=== PATIENT | male | born 1950 | race Caucasian/White ===

== ENCOUNTER → 2021-02-28 09:12 | Outpatient (BNVA) | payer MEDICARE, SELFPAY | PROVIDERS: PCP Internal Medicine; Visit Provider Urology | DX: C61 Malignant neoplasm of prostate (principal) | CPT/HCPCS: Q3014 ==

== ENCOUNTER → 2021-09-14 10:49 | Outpatient (BNVA) | payer MEDICARE, SELFPAY | PROVIDERS: PCP Nurse Practitioner Family; Visit Provider Urology | DX: C61 Malignant neoplasm of prostate (principal) | CPT/HCPCS: Q3014 ==

== ENCOUNTER → 2022-03-16 08:23 | Outpatient (BNVA) | payer MEDICARE, SELFPAY | PROVIDERS: PCP Nurse Practitioner Family; Visit Provider Urology | DX: C61 Malignant neoplasm of prostate (principal) | CPT/HCPCS: Q3014 ==

== ENCOUNTER → 2022-07-18 14:06 | Outpatient (BNVA) | payer MEDICARE, BC, SELFPAY | PROVIDERS: PCP Nurse Practitioner Family; Visit Provider Urology | DX: C61 Malignant neoplasm of prostate (principal) | CPT/HCPCS: 99212 ==

== ENCOUNTER 2023-01-15 15:17 | Outpatient (AMB) | payer MEDICARE, BC, SELFPAY ==
--- NOTE | 2023-01-15 15:21 | MHC.OFFVIS ---
Intake Intake Visit Reasons: 6M PSA(set) Intake Note: Patient is Present for Follow Up Urology Medication: None Antibiotic Allergies: None Blood Thinners: None Pharmacy: [facility] Allergies No Known Allergies Allergy (Verified 01/15/23 15:25) HPI HPI Comments History of Present Illness Details ?Brady MIRELES is a very pleasant male. He is a patient of Dr Mitchell. He is seen for the following urologic conditions. - prostate cancer PSA 02/12 1.9, 09/13 1.7, 03/15 2.6, 07/15 4.0, 01/14 1.9 Reviewed PSA chart Showing good stability Continue to follow q.6 months LILLIAN normal Prostate Cancer:? Low-grade, low volume disease initially 2012 with repeat cores ? 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 Prostate cancer was diagnosed?2010 in [place].? Diagnosis was reached by?needle biopsy, PSA at diagnosis 2.1 - 1 out of 12 cores Gl 3+3 5% ?2012 Gl 6, 1/12 core 5% ?2014 repeat biospy 1 core HGPIN.? The Saw grade is?3+3 = 6.? TNM Classification of Malignant Tumours (TNM)?T1c.? The D'Mt (NCCN) risk category is?Ultralow risk (PSA< 4, Gl < 7, T1c).? Initial therapy included?Primary treatment - differed therapy ? Recent labs included?10/09 , a PSA (prostate-specific antigen) 1.7, 12/11 1.8, 10/11 1.9, 02/12 1.9, 09/13 1.7, 03/15 2.6 Imaging - 02/12 MRI 36 g prostate. No areas of suspicion PFSH Medical History Prostate cancer Surgical History History of surgery Review of Systems Const Denies chills and Denies fever(s) Card Reports no additional complaints and Denies syncope Resp Denies cough GI Denies abdominal pain and Denies heartburn Reports as per HPI and Denies change in libido Neuro Denies syncope Psych Denies change in libido Endo Denies change in libido Physical Exam Const General: cooperative, healthy appearing, comfortable and no acute distress Orientation/consciousness: patient oriented x3 HEENT Face and sinus: Yes normal facial exam Mouth: moist mucous membranes Neck Neck: Yes normal visual inspection, Yes full ROM and Yes trachea midline Chest Chest palpation & inspection: normal inspection of the chest Resp Effort & Inspection: normal respiratory effort, able to speak in complete sentences and no respiratory distress GI Inspection: Yes normal to inspection Back/Spine/Pelvis Cervical Spine: normal cervical lordosis Thoracic/Lumbar Spine: thoracic and lumbar spine normal to inspection Skin General skin exam: no rashes or lesions noted Neuro General: patient oriented x3, gait normal, tone normal and moves all extremities Extrem General: Yes normal to inspection and Yes capillary refill normal Assessment & Plan Assessment & Plan (1) Prostate CA: Comment: Low-grade low volume since 2012 Code(s): C61 - Malignant neoplasm of prostate Plan Four month follow-up PSA Orders: Orders Prostate Specific Antigen 4 Months C61 - Malignant neoplasm of prostate Patient Instructions: Imaging studies, laboratory and physical exam results were discussed and reviewed in detail. No major barriers to patient understanding were identified. An opportunity to ask questions regarding the treatment plan was provided. All questions were answered. The patient expressed understanding and agreement with the above treatment plan. The patient is aware they should contact our office by phone for worsening of their current condition or the appearance of new urologic symptoms. Compliance is encouraged with any medications and followup testing that is ordered. It is a privilege to participate in the urologic care of your patient. If you have any questions or concerns regarding treatment for the above conditions, or other urologic issues, please do not hesitate to contact me. The office telephone contact is [phone]. This note is constructed using voice recognition software. While every effort has been made to ensure accuracy retail associate manager bilingual errors may have been included. Yours sincerely, Dr Jc Rios MD, [facility] - Urology Providers of Expert, Compassionate Care for the Genitourinary System Coding Level of Care Code Est Pt Level 3 (89210) Diagnoses Prostate CA C61
== END 2023-01-15 16:15 | disposition home or self-care (01) ==
PROVIDERS: Visit Provider Urology
DX: C61 Malignant neoplasm of prostate (principal)
CPT/HCPCS: 99213

== ENCOUNTER → 2023-01-15 15:17 | Outpatient (BNVA) | payer MEDICARE, BC, SELFPAY | PROVIDERS: Visit Provider Urology | DX: C61 Malignant neoplasm of prostate (principal) | CPT/HCPCS: 99212 ==

== ENCOUNTER 2023-08-09 09:27 | Outpatient (AMB) | payer MEDICARE, BC, SELFPAY ==
--- NOTE | 2023-08-09 09:27 | A.OFFVIS_ITS ---
Intake Visit Reasons: 6m/PSA(set) Intake Note: [phone] Mint Wafer Depositor Required: No Allergies No Known Allergies Allergy (Verified 08/09/23 09:28) Medication List - Last Reconciled 08/09/23 by Jc Rios MD tamsulosin 0.4 mg PO BEDTIME 30 days HPI Comments Details: ?Brady MIRELES is a very pleasant male. He is a patient of Dr Mitchell. He is seen for the following urologic conditions. - prostate cancer - prostatitis - Lower urinary tract symptoms Telemedicine Evaluation 15 min Consultation [employer] Greg Video PSA 02/12 1.9, 09/13 1.7, 03/15 2.6, 01/14 1.9, 07/16 2.2 Prostate Cancer:? Low-grade, low volume disease initially 2012 with repeat cores ? 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 Prostate cancer was diagnosed?2010 in [place].? Diagnosis was reached by?needle biopsy, PSA at diagnosis 2.1 - 1 out of 12 cores Gl 3+3 5% ?2012 Gl 6, 1/12 core 5% ?2014 repeat biospy 1 core HGPIN.? The Saw Grade is?3+3 = 6.? TNM Classification of Malignant Tumours (TNM)?T1c.? The D'Mt (NCCN) risk category is?Ultralow risk (PSA< 4, Gl < 7, T1c).? Initial therapy included?Primary treatment - differed therapy ? Recent labs included?10/09 , a PSA (prostate-specific antigen) 1.7, 12/11 1.8, 10/11 1.9, 02/12 1.9, 09/13 1.7, 03/15 2.6 Imaging - 02/12 MRI 36 g prostate. No areas of suspicion PFSH Medical History Prostate cancer Surgical History History of surgery Telehealth Telehealth [facility] Location of provider rendering services: practice address Location of patient: address on file Patient Identification confirmed using: Name, : Yes Telehealth method: video Patient verbally consented to treatment: Yes Patient verbally consented to billing insurance company: Yes Patient informed of any privacy concerns related to visit: Yes Minutes spent on Phone/Video with Pt.: 15 Assessment & Plan Assessment & Plan (1) Prostate CA: Comment: Low-grade low volume since 2012 Code(s): C61 - Malignant neoplasm of prostate Category: Medical (2) Bladder outlet obstruction: Code(s): N32.0 - Bladder-neck obstruction Category: Medical Plan start flomax Medications: New tamsulosin 0.4 mg PO BEDTIME 30 days 30 caps 1RF N32.0 - Bladder-neck obstruction, N40.1 - Benign prostatic hyperplasia with lower urinary tract symptoms, R35.1 - Nocturia Patient Instructions: Imaging studies, laboratory and physical exam results were discussed and reviewed in detail. No major barriers to patient understanding were identified. An opportunity to ask questions regarding the treatment plan was provided. All questions were answered. The patient expressed understanding and agreement with the above treatment plan. The patient is aware they should contact our office by phone for worsening of their current condition or the appearance of new urologic symptoms. Compliance is encouraged with any medications and followup testing that is ordered. It is a privilege to participate in the urologic care of your patient. If you have any questions or concerns regarding treatment for the above conditions, or other urologic issues, please do not hesitate to contact me. The office telephone contact is [phone]. This note is constructed using voice recognition software. While every effort has been made to ensure accuracy level vial grinder errors may have been included. Yours sincerely, Dr Jc Rios MD, [facility] - Urology Providers of Expert, Compassionate Care for the Genitourinary System Coding Level of Care Code Tele Est Pt Level 4 (86936) Diagnoses Prostate CA C61 Bladder outlet obstruction N32.0
== END 2023-08-09 10:51 | disposition home or self-care (01) ==
LOC: HO.HUSH 09:27
PROVIDERS: PCP Nurse Practitioner Family; Visit Provider Urology
DX: C61 Malignant neoplasm of prostate (principal); N32.0 Bladder-neck obstruction
CPT/HCPCS: 99213

== ENCOUNTER → 2023-08-09 09:27 | Outpatient (BNVA) | payer MEDICARE, BC, SELFPAY | PROVIDERS: PCP Nurse Practitioner Family; Visit Provider Urology ==

== ENCOUNTER 2025-01-22 09:49 | Outpatient (AMB) | payer MEDICARE, BC, SELFPAY ==
--- OUTSIDE RECORDS SUMMARY | 2025-01-21 23:59 | XMS_ITS | Continuity of Care Document ---
Author Organization [facility] Address [address] [place] [address]- Care Team Providers Care Director Of Special Education Name Role Phone Sean KOWALSKI, Aaron Primary Care Physician [phone] Encounter [facility] Date(s): 12/22/24 - 01/21/[address] [address]- Attending Physician: Keren Eid Admitting Physician: Keren Eid Referring Physician: AdmtrKeren Encounter Type: Triage Allergies, Adverse Reactions, Alerts No Known Allergies Immunizations Given and Recorded Vaccine Date Status Refusal Reason SARS-CoV-2(COVID-19)mRNA-LNP vac([id number]) 12/07/24 Recorded [id number] bivalent booster vax 11/29/21 Recorded SARS-CoV-2 (COVID-19) mRNA BNT-162b2 vac 02/15/21 Recorded SARS-CoV-2 (COVID-19) mRNA BNT-162b2 vac 05/2020 Recorded SARS-CoV-2 (COVID-19) mRNA-1273 vaccine 06/16/20 R ecorded SARS-CoV-2 (COVID-19) mRNA-1273 vaccine 05/19/20 R ecorded Medications aspirin 81 mg oral capsule 4 capsule = 324 mg, By Mouth, Every 4 hours, 0 Refills, Maintenance, 06/02/21 3:03:00 PM EST, Partial fill upon patient request if the prescription is for a schedule II opioid drug. Start Date: 06/02/21 Status: Ordered Medication Dispense Status: Completed Total Allowed Fills: 1 Fills Dispensed: 0 diazepam 5 mg oral tablet 5 mg, 1, tablet, By Mouth, Once, Take 1 hour prior to procedure, # 1 tablet, Refills 0, Tot. Refills 0, Soft Stop, 01/12/25 4:33:00 PM EDT, Route to Pharmacy Electronically, [facility]/pharmacy #[id number], Partial fill upon patient request if the prescription is for a schedule II opioid drug., 179, cm, 01/05/25 11:42:00 EDT, Height, 92.8, kg, 09/07/24 10:26:00 EDT, Dry Weight Start Date: 01/12/25 Status: Ordered Medication Dispense Status: Completed Quantity: 1.0 Unit: tablet Total Allowed Fills: 1 Fills Dispensed: 0 Fish Oil By Mouth, 0 Refills, Maintenance, 04/01/24 9:40:00 AM EST, Partial fill upon patient request if the prescription is for a schedule II opioid drug. Start Date: 04/01/24 Status: Ordered Medication Dispense Status: Completed Total Allowed Fills: 1 Fills Dispensed: 0 Multivitamin Daily, 0 Refills, Maintenance, 11/04/17 2:17:36 PM EDT Start Date: 11/04/17 Status: Ordered Medication Dispense Status: Completed Total Allowed Fills: 1 Fills Dispensed: 0 PEG-3350 with Electrolytes (Eqv-GoLYTELY) oral powder for reconstitution 240 mL, By Mouth, Every 10 minutes, Prior to colonoscopy, # 1 each, 0 Refills, Maintenance, :03:00 AM EDT, REC Powder, [facility], Partial fill upon patient request if the prescription is for a schedule II opioid drug., 240 mL By Mouth Every 10 minutes,Instr:Prior to colonoscopy, 180, cm, 12/14/24 8:32:00 EDT, Height, 92.8, kg, 09/07/24 10:26:00 EDT, Dry Weight Start Date: 12/14/24 Status: Ordered Medication Dispense Status: Completed Quantity: 1.0 Unit: each Total Allowed Fills: 1 Fills Dispensed: 0 rosuvastatin 5 mg oral tablet 1 tablet = 5 mg, By Mouth, Daily at bedtime, # 90 tablet, 1 Refills, Maintenance, 12/23/24 4:51:00 PM EDT, Tablet, [facility], Partial fill upon patient request if the prescription is for a schedule II opioid drug., 179, cm, 12/22/24 8:17:00 EDT, Height, 92.8, kg, 09/07/24 10:26:00 EDT, Dry Weight Start Date: 12/23/24 Status: Ordered Medication Dispense Status: Completed Quantity: 90.0 Unit: tablet Total Allowed Fills: 2 Fills Dispensed: 0 Problem List Condition Confirmation Course Effective Dates Status Health Status Informant Carcinoma of prostate Confirmed Active Constipation, chronic Confirmed Active Essential hypertension Confirmed Active Hypercholesterolemia Confirmed Active Medicare annual wellness visit, initial Confirmed Active Right elbow tendonitis Confirmed Active Social History Social History Type Response Smoking Status Never (less than 100 in lifetime) entered on: 02/03/21 Sexual Orientation Self described orien tation: ; Straight or heterosexual Sex Male Sex Representation Male (finding) Patient Care team information Care Team Personnel Name: Aaron Estrada NP Position: [facility] Associate Professional Member Role: PCP Address: [address] [place] [address] Telecom: Care Team Related Persons Name: GÓMEZ SEPULVEDA Insurance Providers Guarantor name: JACOB MIRELES [employer] Plan Information #: 1 Payer: MEDICARE B Payer Identifier: NA Member Number: [id number] Group Number: NA Subscriber Identifier: NA Relationship to Subscriber: self Coverage Type: NA Coverage Verification Date: NA Telecom: NA Address: NA Health Plan Information #: 2 Payer: [facility] Payer Identifier: NA Member Number: [id number] Group Number: NA Subscriber Identifier: NA Relationship to Subscriber: self Coverage Type: Medicare Other Coverage Verification Date: Telecom: Address:
--- NOTE | 2025-01-22 09:51 | MHC.OFFVIS ---
Intake Visit Reasons: right renal calculi Intake Note: Patient is present for Kidney Stone Urology Med: Patient is no longer on Tamsulosin Antibiotic Allergy: None Blood Thinner: Aspirin Accompanied by: Self / Same As Patient Allergies No Known Allergies Allergy (Verified 08/09/23 09:28) HPI Comments Details: ?Brayd MIRELES is a very pleasant male. He is a patient of Dr Mitchell. He is seen for the following urologic conditions. - prostate cancer - prostatitis - Lower urinary tract symptoms - nephrolithiasis Chest x-ray at [facility] had shown multiple right renal stones CT scan with 2.2 cm right renal stone Noted 1.2 cm tail of pancreas lesion recommend abdominal CT with contrast Discussed stone procedure Amenable to ureteroscopy with steerable vacuum access sheath To be organized Pancreatic lesion requires complete imaging PSA 02/12 1.9, 09/13 1.7, 03/15 2.6, 01/14 1.9, 07/16 2.2 Prostate Cancer:? Low-grade, low volume disease initially 2012 with repeat cores ? Used to work in [employer] for the [employer] ?PSA remains stable ?Currently assisting [employer] with public [employer] communication ? Prostate cancer was diagnosed?2010 in [place].? Diagnosis was reached by?needle biopsy, PSA at diagnosis 2.1 - 1 out of 12 cores Gl 3+3 5% ?2012 Gl 6, 1/12 core 5% ?2014 repeat biospy 1 core HGPIN.? The [place] Grade is?3+3 = 6.? TNM Classification of Malignant Tumours (TNM)?T1c.? The D'Mt (NCCN) risk category is?Ultralow risk (PSA< 4, Gl < 7, T1c).? Initial therapy included?Primary treatment - differed therapy ? Recent labs included?10/09 , a PSA (prostate-specific antigen) 1.7, 12/11 1.8, 10/11 1.9, 02/12 1.9, 09/13 1.7, 03/15 2.6 Imaging - 02/12 MRI 36 g prostate. No areas of suspicion PFSH Medical History Prostate cancer Surgical History History of surgery Review of Systems Const Denies chills and Denies fever(s) Card Reports no additional complaints and Denies syncope Resp Denies cough GI Denies abdominal pain and Denies heartburn Reports as per HPI and Denies change in libido Neuro Denies syncope Psych Denies change in libido Endo Denies change in libido Physical Exam Const General: cooperative, healthy appearing, comfortable and no acute distress Orientation/consciousness: patient oriented x3 HEENT Face and sinus: Yes normal facial exam Mouth: moist mucous membranes Neck Neck: Yes normal visual inspection, Yes full ROM and Yes trachea midline Chest Chest palpation & inspection: normal inspection of the chest Resp Effort & Inspection: normal respiratory effort, able to speak in complete sentences and no respiratory distress GI Inspection: Yes normal to inspection Back/Spine/Pelvis Cervical Spine: normal cervical lordosis Thoracic/Lumbar Spine: thoracic and lumbar spine normal to inspection Skin General skin exam: no rashes or lesions noted Neuro General: patient oriented x3, gait normal, tone normal and moves all extremities Extrem General: Yes normal to inspection and Yes capillary refill normal Assessment & Plan Assessment & Plan (1) Nephrolithiasis: Code(s): N20.0 - Calculus of kidney Category: Medical (2) Pancreatic lesion: Code(s): K86.9 - Disease of pancreas, unspecified Category: Medical (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 Options such as medical therapy were discussed. Interventions include chemical dissolution, ESWL, ureteroscopy with laser lithotripsy and stent placement, PCNL. The relative uncertainties and benefits related to each alternate procedure were adequately discussed. General surgical risks including, but not limited to - pain, bleeding, infection, myocardial infarction, pulmonary embolus, deep vein thrombosis and cerebrovascular accident which may result in further hospitalization were discussed. Full disclosure of the procedure as well as all major risks, benefits and complications were discussed including but not limited to damage to the urethra, bladder and kidney infection, damage to the ureter, stent migration or malposition, scarring to the renal pelvis, remnant stone fragments, subsequent stone passage with need for secondary procedures. The overall secondary procedure rate is approximately 10-15%. The overall clearance rate is approximately 90-95%. Success of the procedure in the short-term does not necessarily guarantee that long-term success will be maintained. Suitable follow up will need to be maintained. The patient showed understanding of discussion and wishes to proceed with - cystoscopy, retrograde, ureteroscopy, possible lithotripsy/stone basketing and stent on the right side Orders: Orders CT abdomen wo/w IV con Today D13.6 - Benign neoplasm of pancreas, K86.9 - Disease of pancreas, unspecified MR MRCP Today D13.6 - Benign neoplasm of pancreas, K86.9 - Disease of pancreas, unspecified Patient Instructions: This note is constructed using voice recognition software. While every effort has been made to ensure accuracy care management coordinator errors may have been included. Imaging studies, laboratory and physical exam results were discussed and reviewed in detail. No major barriers to patient understanding were identified. An opportunity to ask questions regarding the treatment plan was provided. All questions were answered. The patient expressed understanding and agreement with the above treatment plan. The patient is aware they should contact our office by phone for worsening of their current condition or the appearance of new urologic symptoms. Compliance is encouraged with any medications and followup testing that is ordered. It is a privilege to participate in the urologic care of your patient. If you have any questions or concerns regarding treatment for the above conditions, or other urologic issues, please do not hesitate to contact me. The office telephone contact is [phone]. Sincerely, Dr Jc Rios MD, [facility] - Urology Compassionate Specialist Care for the Genitourinary System Coding Level of Care Code Est Pt Level 4 (00492) Complex EM visit Add On G2211 Diagnoses Nephrolithiasis N20.0 Pancreatic lesion K86.9 Intraductal papillary mucinous adenoma of pancreas D13.6
--- OUTSIDE RECORDS SUMMARY | 2025-01-22 10:59 | XMS_ITS | Encounter Summary ---
Author Organization [facility] Address [address] [facility] [address] [place] [id number] Phone Care Team Providers Care Inbound Ingredient Logistics Specialist Name Role Phone Marcie Mitchell MD Primary Care Provider + [phone] Encounter Details Date Type Department Care Team (Late st Contact Info) Description 12/11/2017 Procedure Pass OR Admitting Dept - Virtual Department [address] [place] [id number] Social History Tobacco Use Types Packs/Day Years Used Date Smoking Tobacco: Never Smokeless Tobacco: Never Alcohol Use Standard Drinks/Week Comments Yes 0 (1 standard drink = 0.6 oz pur e alcohol) once or twice a month Sex and Gender Information Value Date Recorded Sex Assigned at Not on file Legal Sex Male 11:05 AM EDT Gender Identity Not on file Sexual Orientation Not on file documented as of this encounter Plan of Treatment Not on file documented as of this encounter Visit Diagnoses Not on filedocumented in this encounter Care Teams Inbound Ingredient Logistics Specialist Relationship Specialty Start Date End Date Marcie Mitchell MD [email or web address] PCP - General Internal Medicine 11/21/17 documented as of this encounter Additional Source Comments The information contained in this document represents components of the legal health record. It is not the complete legal health record.[facility]
--- OUTSIDE RECORDS SUMMARY | 2025-01-22 10:59 | XMS_ITS | Clinical Summary ---
Author Organization [facility] [place] [address] Care Team Providers Care Manager Media Relations Name Role Phone Unknown Primary Care Provider Unavailabl e Allergies No known active allergies Medications niacin (NIASPAN) 500 mg ER tablet Take 500 mg by mouth 2 times daily (with meals). Active aspirin 81 mg EC tablet Take 81 mg by mouth daily. Active Active Problems No known active problems Social History Tobacco Use Types Packs/Day Years Used Date Smoking Tobacco: Never Smokeless Tobacco: Never Alcohol Use Standard Drinks/Week Comments No 0 (1 standard drink = 0.6 oz pur e alcohol) Sex and Gender Information Value Date Recorded Sex Assigned at Not on file Legal Sex Male 7:27 AM EST Gender Identity Not on file Sexual Orientation Not on file Last Filed Vital Signs Vital Sign Reading Time Taken Comments Blood Pressure 135/79 12/15/2010 2:22 PM EDT Pulse 60 12/15/2010 2:22 PM EDT Temperature 37.1 C (98.8 F) 12/15/2010 2:22 PM EDT Respiratory Rate 16 12/06/2010 7:13 PM EDT Oxygen Saturation 98% 12/06/2010 7:13 PM EDT Inhaled Oxygen Concentration - - Weight 86.2 kg (190 lb) 12/15/2010 2:22 PM EDT Height 180.3 cm (5' 11 ) 12/15/2010 2:22 PM EDT Body Mass Index 26.5 12/15/2010 2:22 PM EDT Plan of Treatment Health Maintenance Due Date Last Done Comments CT Colonography 1950 Colonoscopy 1950 Colorectal Cancer Screening 1950 FIT DNA 1950 FIT 1950 Sigmoidoscopy (10 year) with FIT yearly 1950 Sigmoidoscopy 1950 Hepatitis C Screening 1968 Lipid Screening 1968 Tetanus/Diphtheria/Pertussis Vaccines (1 - Tdap) 10/07 Pneumoccocal Vaccine: 50+ (1 of 1 - PCV) 2000 Zoster vaccine (1 of 2) 2000 Advance Directive 2005 Covid-19 Vaccine (1 - 2024-26 season) 2024 Influenza (Flu) vaccine (1 o f 1 - Influenza standard series) 11/23/2024 Care Teams Manager Media Relations Relationship Specialty Start Date End Date Unknown None PCP - General 08/19/12
--- OUTSIDE RECORDS SUMMARY | 2025-01-22 10:59 | XMS_ITS | Clinical Summary ---
Author Organization [facility] Address [address] [facility] [address] [place] [address] Phone Care Team Providers Care Prosthetic Dentist Name Role Phone Marcie Mitchell MD Primary Care Provider + [phone] Allergies No known active allergies Medications aspirin 81 MG EC tablet Take 81 mg by mouth daily. Active therapeutic multivitamin tablet Take 1 tablet by mouth daily. Active Active Problems Problem Noted Date Diagnosed Date Mass of finger of right hand Social History Tobacco Use Types Packs/Day Years Used Date Smoking Tobacco: Never Smokeless Tobacco: Never Alcohol Use Standard Drinks/Week Comments Yes 0 (1 standard drink = 0.6 oz pur e alcohol) once or twice a month Education Answer Date Recorded Are you interested in more education? Not on kendall e 07/20/2022 Are you concerned about learning? Not on file 07/20/2022 No 07/20/2022 No 07/20/2022 Digital Access Answer Date Recorded No 08/14/2022 No 08/14/2022 Reliable internet access at home? Not on file 08/14/2022 Device with a working camera? Not on file Sex and Gender Information Value Date Recorded Sex Assigned at Not on file Legal Sex Male 11:05 AM EDT Gender Identity Not on file Sexual Orientation Not on file Last Filed Vital Signs Vital Sign Reading Time Taken Comments Blood Pressure 135/96 12/11/2017 12:16 PM EDT Pulse 64 12/11/2017 12:16 PM EDT Temperature 36.5 C (97.7 F) 12/11/2017 12:16 PM EDT Respiratory Rate 16 12/11/2017 9:57 AM EDT Oxygen Saturation 98% 12/11/2017 12:16 PM EDT Inhaled Oxygen Concentration - - Weight 88.9 kg (196 lb) 08/12/2022 11:07 AM EDT Height 180.3 cm (5' 11 ) 08/12/2022 11:07 AM EDT Body Mass Index 27.34 08/12/2022 11:07 AM EDT Plan of Treatment Health Maintenance Due Date Last Done Comments Adult Td,Tdap Booster 1950 LIPID PANEL 1950 DEPRESSION SCREENING 1962 HEPATITIS C SCREENING 1968 COLOGUARD 10/08/1995 COLONOSCOPY 10/08/1995 COLORECTAL CANCER SCREENING 10/08/1995 FIT TEST 10/08/1995 FOBT 10/08/1995 SIGMOIDOSCOPY 10/08/1995 VIRTUAL COLONOSCOPY 10/08/1995 PNEUMOCOCCAL VACCINES (50+ years) (1 of 1 - PCV) 2000 ZOSTER VACCINES (1 of 2) 2000 INFLUENZA VACCINE (#1) 2024 COVID-19 VACCINE (2024- season) 2024 11/29/2021, 02/15/2021, 06/16/2020, Additional history exists RSV VACCINE (1 - 1-dose 75+ series) 2025 SMOKING STATUS SCREENING (Once After 26 Yrs) Completed 08/27/2022 HEPATITIS A VACCINES Aged Out No long er eligible based on patient's age to complete this topic HIB VACCINES Aged Out No longer eligi ble based on patient's age to complete this topic MENINGOCOCCAL VACCINES (ACWY) Aged Out No longer eligible based on patient's age to complete this topic MENINGOCOCCAL VACCINES (B) Aged Out N o longer eligible based on patient's age to complete this topic Medical Devices Not on file Insurance FEDERAL MEDICARE PART A & B MEDICARE PART A & B MEDICARE PART A & B MEDICARE PART A & B MEDICARE PART A & B MEDICARE PART A & B MEDICARE PART A & B MEDICARE PART A & B MEDICARE PART A & B Advance Directives For more information, please contact: [phone] (9AM - 5PM [facility], Saturday-Saturday) * Full Code (Presumed) (Latest Code Status on File) Date Activated Date Inactivated Comments 12/11/2017 9:59 AM 12/11/2017 2:44 PM Care Teams Prosthetic Dentist Relationship Specialty Start Date End Date Marcie Mitchell MD PCP - General Internal Medicine 11/21/17 Additional Source Comments The information contained in this document represents components of the legal health record. It is not the complete legal health record.[facility]
--- OUTSIDE RECORDS SUMMARY | 2025-01-22 10:59 | XMS_ITS | Encounter Summary ---
Author Organization [facility] Address [address] [employer] [facility] [address] [place] [address] Phone Care Team Providers Care Cotton Gin Yard Supervisor Name Role Phone Marcie Mitchell MD Primary Care Provider + [phone] Encounter Details Date Type Department Care Team (Late st Contact Info) Description 12/11/2017 Procedure Pass OR Admitting Dept - Virtual Department [address] [place] [address] Social History Tobacco Use Types Packs/Day Years [...] on filedocumented in this encounter Care Teams Cotton Gin Yard Supervisor Relationship Specialty Start Date End Date Marcie Mitchell MD [email or web address] PCP - General Internal Medicine 11/21/17 documented as of this encounter Additional Source Comments The information contained in this document represents components of the legal health record. It is not the complete legal health record.[facility]
--- OUTSIDE RECORDS SUMMARY | 2025-01-22 10:59 | XMS_ITS | Encounter Summary ---
Author Organization [facility] Address [address] [employer] [facility] [address] [place] [address] Phone Care Team Providers Care Hematology Oncology Consultant Name Role Phone Marcie Mitchell MD Primary Care Provider + [phone] Encounter Details Date Type Department Care Team (Late st Contact Info) Description 07/30/2022 Procedure Pass [facility], [address] [place] [address] Social History Tobacco Use Types Packs/Day Years [...] on file 07/20/2022 No 07/20/2022 No 07/20/2022 Sex and Gender Information Value Date Recorded Sex Assigned at Not on file Legal Sex Male 11:05 AM EDT Gender Identity Not on file Sexual Orientation Not on file documented as of this encounter Plan of Treatment Not on file documented as of this encounter Visit Diagnoses Not on filedocumented in this encounter Care Teams Hematology Oncology Consultant Relationship Specialty Start Date End Date Marcie Mitchell MD PCP - General Internal Medicine 11/21/17 documented as of this encounter Additional Source Comments The information contained in this document represents components of the legal health record. It is not the complete legal health record.[facility]
--- OUTSIDE RECORDS SUMMARY | 2025-01-22 10:59 | XMS_ITS | Encounter Summary ---
Author Organization [facility] Address [address] [facility] [address] [place] [address] Phone Care Team Providers Care Hospital Product Specialist Name Role Phone Marcie Mitchell MD Primary Care Provider +1 [phone] Encounter Details Date Type Department Care Team (Late st Contact Info) Description 11/21/2017 Prep for Surgery [facility]ics & [facility] Medicine [address] [place] [address] Bob Ac MD [address] [place] [address] Mass of finger of right hand (Primary Dx) Social History Tobacco Use Types Packs/Day Years [...] on file documented as of this encounter H&P Notes * Bob Ac MD - 11/21/2017 2:06 PM EDT This is a 67-year-old man with a long-standing mass on the volar aspect of the distal right index finger it is enlarged very slowly over approximately 1 year. 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 Following evaluation in our office he elected to proceed with excision. Physical examination reveals alert man in no distress. Examination of HEENT reveals no evidence of active upper respiratory tract infection. Chest is clear to P&A. Heart reveals regular sinus rhythm without murmur or gallop. Orthopedic evaluation is restricted to the right hand. He has good range of motion of the right index finger including the DIP joint. He can get the fingertip down to the distal palmar crease. There is a visible asymmetry of the contour of the right index finger with prominence of the vulvar ulnar aspect. There was a firm fusiform mass along the volar aspect of the ulnar side of the index finger which is rubbery. It is not attached to the skin. It is nonpulsatile. X-rays have been obtained and revealed a soft tissue mass only. 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 I discussed my thoughts with the patient. Following this discussion he chose to proceed to have this excised. I discussed the perioperative details of the procedure its risks and benefits. I diagrammed the incision necessary. I discussed the usual caliber recovery. documented in this encounter Plan of Treatment Not on file documented as of this encounter Visit Diagnoses Diagnosis Mass of finger of right hand- Primary Localized superficial swelling, mass, or lump documented in this encounter Care Teams Hospital Product Specialist Relationship Specialty Start Date End Date Marcie Mitchell MD [email or web address] PCP - General Internal Medicine 11/21/17 documented as of this encounter Additional Source Comments The information contained in this document represents components of the legal health record. It is not the complete legal health record.[facility]
== END 2025-01-22 10:29 | disposition home or self-care (01) ==
LOC: HO.HUSH 09:50
PROVIDERS: PCP Nurse Practitioner Family; Visit Provider Urology
DX: N20.0 Calculus of kidney (principal); K86.9 Disease of pancreas, unspecified; D13.6 Benign neoplasm of pancreas
CPT/HCPCS: 99214; G2211

== ENCOUNTER → 2025-01-22 09:49 | Outpatient (BNVA) | payer MEDICARE, BC, SELFPAY | PROVIDERS: PCP Nurse Practitioner Family; Visit Provider Urology | DX: N20.0 Calculus of kidney (principal); K86.9 Disease of pancreas, unspecified; Z85.46 Personal history of malignant neoplasm of prostate | CPT/HCPCS: 99212 ==

== ENCOUNTER 2025-02-02 11:57 | Outpatient (REF) | payer MEDICARE, BC, SELFPAY ==
--- OUTSIDE RECORDS SUMMARY | 2025-02-02 13:58 | XMS_ITS | Clinical Summary ---
Author Organization [facility] Address [address] [facility] [address] [place] [address] Phone Care Team Providers Care Cabinetmaker Supervisor Name Role Phone Aaron Estrada QUALITY CONTROL ANALYST Primary Care Provider [phone] Allergies No known active allergies Medications aspirin [...] 2000 INFLUENZA VACCINE (#1) 2024 COVID-19 VACCINE ( - 2024- season) 2024 11/29/2021, 02/15/2021, 06/16/2020, Additional history exists RSV VACCINE (1 - 1-dose 75+ series) 2025 SMOKING STATUS SCREENING (Once After 26 Yrs) Completed 08/27/2022 HEPATITIS A VACCINES Aged Out No long er eligible based on patient's age to complete this topic HIB VACCINES Aged Out No longer eligi ble based on patient's age to complete this topic IPV VACCINES Aged Out No longer eligi ble [...] & B MEDICARE PART A & [place] [address] [place] [address] [facility] Address: [facility] [address] [place] [address] MEDICARE PART A & B Advance Directives For more information, please contact: [phone] (9AM - 5PM [facility], Saturday-Saturday) * Full Code (Presumed) (Latest Code Status on File) Date Activated Date Inactivated Comments 12/11/2017 9:59 AM 12/11/2017 2:44 PM Care Teams Cabinetmaker Supervisor Relationship Specialty Start Date End Date Aaron Estrada NP [address] [place] [phone] PCP - General Nurse Practitioner 02/02/25 Additional Source Comments The information contained in this document represents components of the legal health record. It is not the complete legal health record.[facility]
--- OUTSIDE RECORDS SUMMARY | 2025-02-02 13:58 | XMS_ITS | Encounter Summary ---
Author Organization [facility] Address [address] [facility] [address] [place] [address] Phone Care Team Providers Care Restaurant Hostess Name Role Phone Marcie Mitchell MD Primary Care Provider [phone] Aaron Estrada NP Primary Care Provider +- [phone] Encounter Details Date Type Department Care Team (Late st Contact Info) Description 11/21/2017 Prep for Surgery [facility] Orthopedics & Sports Medicine [address] [place] [address] Bob Ac MD [address] [place] [address] Mass of finger of right hand (Primary [...] lump documented in this encounter Care Teams Restaurant Hostess Relationship Specialty Start Date End Date Marcie Mitchell MD PCP - General Internal Medicine 11/21/17 02/01/25 Aaron Estrada NP [address] [place] [phone] PCP - General Nurse Practitioner 02/02/25 documented as of this encounter Additional Source Comments The information contained in this document represents components of the legal health record. It is not the complete legal health record.[facility]
--- OUTSIDE RECORDS SUMMARY | 2025-02-02 13:58 | XMS_ITS | Encounter Summary ---
Author Organization [facility] Address [address] [place] [address] Phone Care Team Providers Care Child And Youth Program Assistant Name Role Phone Marcie Mitchell MD Primary Care Provider [phone] Aaron Estrada NP Primary Care Provider +- [phone] Encounter Details Date Type Department Care Team (Late st Contact Info) Description 12/11/2017 Procedure Pass OR Admitting Dept - Virtual Department [address] [place] [address] Social History Tobacco Use Types Packs/Day Years [...] on filedocumented in this encounter Care Teams Child And Youth Program Assistant Relationship Specialty Start Date End Date Marcie Mitchell MD PCP - General Internal Medicine 11/21/17 02/01/25 Aaron Estrada NP [address] [place] [phone] PCP - General Nurse Practitioner 02/02/25 documented as of this encounter Additional Source Comments The information contained in this document represents components of the legal health record. It is not the complete legal health record.[facility]
--- OUTSIDE RECORDS SUMMARY | 2025-02-02 13:58 | XMS_ITS | Encounter Summary ---
Author Organization [facility] Address [address] [address] Phone Care Team Providers Care Buggy Runner Name Role Phone Marcie Mitchell MD Primary Care Provider + [phone] Aaron Estrada NP Primary Care Provider [phone]- [phone] Encounter Details Date Type Department Care Team ([facility] st Contact Info) Description 07/30/2022 Procedure Pass [address] [place] [address] Social History Tobacco Use Types Packs/Day Years [...] on filedocumented in this encounter Care Teams Buggy Runner Relationship Specialty Start Date End Date Marcie Mitchell MD PCP - General Internal Medicine 11/21/17 02/01/25 Aaron Estrada NP [address] [phone] PCP - General Nurse Practitioner 02/02/25 documented as of this encounter Additional Source Comments The information contained in this document represents components of the legal health record. It is not the complete legal health record.[facility]
--- OUTSIDE RECORDS SUMMARY | 2025-02-02 13:58 | XMS_ITS | Clinical Summary ---
Author Organization [facility] [place] [address] Care Team Providers Care Factory Machine Computer Operator Name Role Phone Unknown Primary Care Provider [...] - Influenza standard series) 11/23/2024 Care Teams Factory Machine Computer Operator Relationship Specialty Start Date End Date Unknown None PCP - General 08/19/12
--- OUTSIDE RECORDS SUMMARY | 2025-02-02 13:58 | XMS_ITS | Encounter Summary ---
Author Organization [facility] Address [address] [place] [address] Phone Care Team Providers Care Occupational Therapy Aides Teacher Name Role Phone Marcie Mitchell MD Primary Care Provider [phone] Aaron Estrada NP Primary Care Provider +- [phone] Encounter Details Date Type Department Care Team (Late st Contact Info) Description 12/11/2017 Procedure Pass OR Admitting Dept - Virtual Department [address] [place] [address] Social History Tobacco Use Types Packs/Day Years [...] on filedocumented in this encounter Care Teams Occupational Therapy Aides Teacher Relationship Specialty Start Date End Date Marcie Mitchell MD PCP - General Internal Medicine 11/21/17 02/01/25 Aaron Estrada NP [address] [place] [phone] PCP - General Nurse Practitioner 02/02/25 documented as of this encounter Additional Source Comments The information contained in this document represents components of the legal health record. It is not the complete legal health record.[facility]
== END 2025-02-02 11:58 | disposition home or self-care (01) ==
LOC: CF 11:57
DX: Z13.89 Encounter for screening for other disorder (principal)

== ENCOUNTER 2025-02-22 07:16 | Outpatient (REF) | payer MEDICARE, BC, SELFPAY ==
--- NOTE | ~2025-02-22 | MR_ITS ---
EXAMINATION: MR MRCP CLINICAL INFORMATION: Cystic lesion of the pancreas. Right flank pain. COMPARISON: CT abdomen from an outside institution dated January 15, 2025. TECHNIQUE: Axial and coronal T2 HASTE sequences. Axial and coronal T2 fat-sat HASTE sequences. Axial in and out of 3-D phase sequences. 3-D space MRCP triggered. FINDINGS: Patient's motion artifact. Common bile duct measures 4 mm in maximum diameter. No gross intraluminal signal abnormality. Main pancreatic duct measures 1.5 mm in maximum diameter. There is a common channel for both main pancreatic duct and common bile duct into the medial aspect of the second portion of the duodenum. Gallbladder is fluid-filled nondistended with multiple less than 5 mm hypointense T2 round signal abnormality layering in the fundus and neck. No gallbladder wall thickening. No pericholecystic fluid collection. Liver measures 15 cm in maximum craniocaudal dimension. No gross signal abnormality. No intrahepatic biliary ductal dilatation. Flow-void signal within the main portal veins and hepatic veins is normal. There is a well-defined 1.9 cm fluid signal characteristic lesion in the body tail of the pancreas with satellite less than 4 mm fluid signal characteristic lesions in the body tail of the pancreas. There is a 3 mm fluid signal characteristic lesion in the pancreas head. No peripancreatic fluid collection. Spleen measures 9 cm without gross signal abnormality. No nodular lesions in the adrenal glands. There multifocal different sizes fluid signal characteristic lesions in the right kidney, the largest measures 4 cm. There is a hypointense T2 signal lesion in the renal pelvis of the right kidney which measures no more than 2 cm likely related to the calcification on the recent CT from an outside institution. No hydronephrosis in the kidney. No dilatation of the ureters. Abdominal aorta demonstrates normal diameter without gross intraluminal flap. No ascites. Scattered diverticula in the right hemicolon and transverse colon. No gross lymphadenopathy, mesenteric or retroperitoneal. Small hiatal hernia. Diastases abdominal rectus muscles in the periumbilical region. Multilevel thoracolumbar spondylosis no fully evaluated. MR/MR MRCP IMPRESSION: Cholelithiasis without choledocholithiasis. Nonspecific multiple pancreatic cysts, largest 1.9 cm at the body pancreas junction. 2 cm nonobstructing calculus, right kidney. Multiple cystic lesions, right kidney. Electronically signed by: Hemant Francois MD 02/22/2025 09:29 AM TYESHA MISHRA
--- OUTSIDE RECORDS SUMMARY | 2025-02-22 07:19 | XMS_ITS | Encounter Summary ---
Author Organization [facility] Address [address] [facility] [address] [place] [address] Phone Care Team Providers Care Case Management Director Name Role Phone Marcie Mitchell MD Primary Care Provider + [phone] Aaron Estrada NP Primary Care Provider +- [phone] Encounter Details Date Type Department Care Team (Late Contact Info) Description 07/30/2022 Procedure Pass [address] [place] [address] Social History Tobacco Use Types Packs/Day Years [...] as of this encounter Plan of Treatment Upcoming Encounters Date Type Department Care Team (Late Contact Info) Description 03/12/2025 10:30 AM EST Initial consult [facility] Surgical Oncology [address] [facility] [place] [address] Isaias Tineo MD [address] [place] [address] [email or web address] documented as of this encounter Visit Diagnoses Not on filedocumented in this encounter Care Teams Case Management Director Relationship Specialty Start Date End Date Marcie Mitchell MD [email or web address] PCP - General Internal Medicine 11/21/17 02/01/25 Aaron Estrada NP [address] [place] [phone] PCP - General Nurse Practitioner 02/02/25 documented as of this encounter Additional Source Comments The information contained in this document represents components of the legal health record. It is not the complete legal health record.[facility]
--- OUTSIDE RECORDS SUMMARY | 2025-02-22 07:19 | XMS_ITS | Clinical Summary ---
Author Organization [facility] [place] [address] Care Team Providers Care Educational Recruiter Name Role Phone Unknown Primary Care Provider [...] - Influenza standard series) 11/23/2024 Care Teams Educational Recruiter Relationship Specialty Start Date End Date Unknown None PCP - General 08/19/12
--- OUTSIDE RECORDS SUMMARY | 2025-02-22 07:19 | XMS_ITS | Encounter Summary ---
Author Organization [facility] Address [address] [facility] [address] [place] [address] Phone Care Team Providers Care Railway Signal Technician Name Role Phone Aaron Estrada Eric PHOTOGRAPHER'S MODEL Primary Care Provider +- [phone] Encounter Details Date Type Department Care Team (Late Contact Info) Description 02/12/2025 Telephone [facility] Surgical Oncology [address] [place] [address] [email or web address] Social History Tobacco Use Types Packs/Day Years [...] Encounters Date Type Department Care Team (Late st Contact Info) Description 03/12/2025 10:30 AM EST Initial consult [facility] Surgical Oncology [address] [place], [place] [address] [place] [address] Isaias Tineo MD [address] [place] [phone] [email or web address] documented as of this encounter Visit Diagnoses Not on filedocumented in this encounter Care Teams Railway Signal Technician Relationship Specialty Start Date End Date Aaron Estrada NP [address] [place] [phone] PCP - General Nurse Practitioner 02/02/25 documented as of this encounter Additional Source Comments The information contained in this document represents components of the legal health record. It is not the complete legal health record.[facility]
--- OUTSIDE RECORDS SUMMARY | 2025-02-22 07:20 | XMS_ITS | Encounter Summary ---
Author Organization [facility] Address [address] [place] [address] Phone Care Team Providers Care Chain Pegger Name Role Phone Marcie Mitchell MD Primary Care Provider + [phone] Aaron Estrada NP Primary Care Provider +- [phone] Encounter Details Date Type Department Care Team (Late st Contact Info) Description 12/11/2017 Procedure Pass OR Admitting Dept - Virtual Department [address] [place] [address] Social History Tobacco Use Types Packs/Day Years [...] Description 03/12/2025 10:30 AM EST Initial consult [facility] Surgical Oncology [address] [facility] [place] [address] Isaias Tineo MD [address] [place] [phone] [email or web address] documented as of this encounter Visit Diagnoses Not on filedocumented in this encounter Care Teams Chain Pegger Relationship Specialty Start Date End Date Marcie Mitchell MD [email or web address] PCP - General Internal Medicine 11/21/17 02/01/25 Aaron Estrada NP [address] [place] [phone] PCP - General Nurse Practitioner 02/02/25 documented as of this encounter Additional Source Comments The information contained in this document represents components of the legal health record. It is not the complete legal health record.[facility]
--- OUTSIDE RECORDS SUMMARY | 2025-02-22 07:20 | XMS_ITS | Encounter Summary ---
Author Organization [facility] Address [address] [place] [address] Phone Care Team Providers Care Wheel Assembler Name Role Phone Marcie Mitchell MD Primary Care Provider + [phone] Aaron Estrada NP Primary Care Provider +- [phone] Encounter Details Date Type Department Care Team (Late st Contact Info) Description 12/11/2017 Procedure Pass OR Admitting Dept - Virtual Department [address] [place] [address] Social History Tobacco Use Types Packs/Day Years [...] Description 03/12/2025 10:30 AM EST Initial consult [facility] Surgical Oncology [address] [facility] [place] [address] Isaias Tineo MD [address] [place] [phone] [email or web address] documented as of this encounter Visit Diagnoses Not on filedocumented in this encounter Care Teams Wheel Assembler Relationship Specialty Start Date End Date Marcie Mitchell MD [email or web address] PCP - General Internal Medicine 11/21/17 02/01/25 Aaron Estrada NP [address] [place] [phone] PCP - General Nurse Practitioner 02/02/25 documented as of this encounter Additional Source Comments The information contained in this document represents components of the legal health record. It is not the complete legal health record.[facility]
--- OUTSIDE RECORDS SUMMARY | 2025-02-22 07:20 | XMS_ITS | Clinical Summary ---
Author Organization [facility] Address [address] [facility] [address] [place] [address] Phone Care Team Providers Care Assistant Program Director Name Role Phone Sean Aaron Eric REGIONAL REFRIGERATED CDL TRUCK DRIVER Primary Care Provider [phone] Allergies No known active allergies Medications aspirin 81 MG EC tablet Take 81 mg by mouth daily. Active therapeutic multivitamin tablet Take 1 tablet by mouth daily. Active Active Problems Problem Noted Date Diagnosed Date Mass of finger of right hand Encounters Date Type Department Care Team Description 02/12/2025 Telephone [facility] Surgical Oncology 45 [facility] [place] [address] Adriana Whittington from Last 3 Months Social History Tobacco Use Types Packs/Day Years [...] 08/12/2022 11:07 AM EDT Plan of Treatment Upcoming Encounters Date Type Department Care Team (Late st Contact Info) Description 03/12/2025 10:30 AM EST Initial consult [facility] Surgical Oncology 45 [facility] [place] [address] Isaias Tineo MD [address] [place] [address] [email or web address] Health Maintenance Due Date Last Done Comments [...] topic Medical Devices Not on file Insurance MEDICARE PART A & B MEDICARE PART A & B MEDICARE PART A & B [facility] MEDICARE PART A & B MEDICARE PART A & B MEDICARE PART A & B MEDICARE PART A & B FEDERAL MEDICARE PART A & B MEDICARE PART A & B Advance Directives For more information, please contact: [phone] (9AM - 5PM [place], Saturday[place]) * Full Code (Presumed) (Latest Code Status on File) Date Activated Date Inactivated Comments 12/11/2017 9:59 AM 12/11/2017 2:44 PM Care Teams Assistant Program Director Relationship Specialty Start Date End Date Aaron Estrada NP [address] [phone] PCP - General Nurse Practitioner 02/02/25 Additional Source Comments The information contained in this document represents components of the legal health record. It is not the complete legal health record.[facility]
--- OUTSIDE RECORDS SUMMARY | 2025-02-22 07:20 | XMS_ITS | Encounter Summary ---
Author Organization [facility] Address [address] [address] Phone Care Team Providers Care Speech And Language Specialist Name Role Phone Marcie Mitchell MD Primary Care Provider + [phone] Aaron Estrada NP Primary Care Provider [phone]- [phone] Encounter Details Date Type Department Care Team (Late st Contact Info) Description 11/21/2017 Prep for Surgery [facility] Orthopedics & Sports Medicine [address] [place] [address] Bob Ac MD [address] [place] [address] Mass of finger of right hand (Primary [...] documented in this encounter Plan of Treatment Upcoming Encounters Date Type Department Care Team (Late st Contact Info) Description 03/12/2025 10:30 AM EST Initial consult [facility] Surgical Oncology 45 [facility] [place] [address] Isaias Tineo MD [address] [place] [id number] [email or web address] documented as of this encounter Visit Diagnoses Diagnosis Mass of finger of right hand- Primary Localized superficial swelling, mass, or lump documented in this encounter Care Teams Speech And Language Specialist Relationship Specialty Start Date End Date Marcie Mitchell MD PCP - General Internal Medicine 11/21/17 02/01/25 Aaron Estrada NP [address] [place] [phone] PCP - General Nurse Practitioner 02/02/25 documented as of this encounter Additional Source Comments The information contained in this document represents components of the legal health record. It is not the complete legal health record.[facility]
== END 2025-02-22 07:17 | disposition home or self-care (01) ==
LOC: HO.MRI 07:16
PROVIDERS: PCP Nurse Practitioner Family; Visit Provider Urology
DX: D13.6 Benign neoplasm of pancreas (principal); K86.9 Disease of pancreas, unspecified
CPT/HCPCS: 74181

== ENCOUNTER → 2025-02-22 07:16 | Outpatient (BNV) | payer MEDICARE, BC, SELFPAY | PROVIDERS: PCP Nurse Practitioner Family; Visit Provider Radiology Diagnostic Radiology | DX: K80.20 Calculus of gallbladder without cholecystitis without obstruction (principal); N20.0 Calculus of kidney; N28.1 Cyst of kidney, acquired | CPT/HCPCS: 74181 ==

== ENCOUNTER 2025-03-15 08:26 | Day surgery (SDC) | payer MEDICARE, BC, SELFPAY ==
--- OUTSIDE RECORDS SUMMARY | 2025-02-26 06:40 | XMS_ITS | Encounter Summary ---
Author Organization [facility] Address [address] [place] [address] Phone Care Team Providers Care Warehouse Consultant Name Role Phone Marcie Mitchell MD Primary Care Provider + [phone] Aaron Estrada NP Primary Care Provider [phone]- [phone] Encounter Details Date Type Department Care Team (Late st Contact Info) Description 12/11/2017 Procedure Pass OR Admitting Dept - Virtual Department [address] [place] [address] Social History Tobacco Use Types Packs/Day Years [...] Description 03/12/2025 10:30 AM EST Initial consult [facility] Surgical Oncology 45 [facility] [place] [address] Isaias Tineo MD [address] [place] [address] [email or web address] documented as of this encounter Visit Diagnoses Not on filedocumented in this encounter Care Teams Warehouse Consultant Relationship Specialty Start Date End Date Marcie Mitchell MD [email or web address] PCP - General Internal Medicine 11/21/17 02/01/25 Aaron Estrada NP [address] [place] [phone] PCP - General Nurse Practitioner 02/02/25 documented as of this encounter Additional Source Comments The information contained in this document represents components of the legal health record. It is not the complete legal health record.[facility]
--- OUTSIDE RECORDS SUMMARY | 2025-02-26 06:40 | XMS_ITS | Clinical Summary ---
Author Organization [facility] [place] [address] Care Team Providers Care Moderate Needs Teacher Name Role Phone Unknown Primary Care Provider [...] - Influenza standard series) 11/23/2024 Care Teams Moderate Needs Teacher Relationship Specialty Start Date End Date Unknown None PCP - General 08/19/12
--- OUTSIDE RECORDS SUMMARY | 2025-02-26 06:40 | XMS_ITS | Clinical Summary ---
Author Organization [facility] Address 399 [facility] [address] [place] [address] Phone Care Team Providers Care Agronomy Professor Name Role Phone Aaron Estrada Eric AUSTR[employer]IAN RULES FOOTBALLER Primary Care Provider [phone]- [phone] Allergies No known active allergies Medications aspirin 81 MG EC tablet Take 81 mg by mouth daily. Active therapeutic multivitamin tablet Take 1 tablet by mouth daily. Active Active Problems Problem Noted Date Diagnosed Date Mass of finger of right hand Encounters Date Type Department Care Team Description 02/12/2025 Telephone [facility] Surgical Oncology 45 [facility] [place] [address] Adriana Whittington from Last 3 Months Social [...] Description 03/12/2025 10:30 AM EST Initial consult [facility] Surgical Oncology 45 [facility] [place] [address] Isaias Tineo MD [address] [place] [address] [email or web address] Health Maintenance Due Date Last Done Comments [...] & B MEDICARE PART A & B Member Subscriber Plan / Payer (Ef fective 2017-Present) Name:Brady Dunbar Member ID:[id number] Relation to Subscriber:Self Name:Brady Dunbar Subscriber ID:[id number] Payer ID:[id number] Group ID:Not on file Type:Medicare Address: [facility] Baby World Language [facility] [employer] [facility] [address] [place] [address] [facility] MEDICARE PART A & B MEDICARE PART A & B MEDICARE PART A & B MEDICARE PART A & B FEDERAL MEDICARE PART A & B MEDICARE PART A & B Advance Directives For more information, please contact: [phone] (9AM - 5PM [place], Saturday-Saturday) * Full Code (Presumed) (Latest Code Status on File) Date Activated Date Inactivated Comments 12/11/2017 9:59 AM 12/11/2017 2:44 PM Care Teams Agronomy Professor Relationship Specialty Start Date End Date Aaron Estrada NP [address] [phone] PCP - General Nurse Practitioner 02/02/25 Additional Source Comments The information contained in this document represents components of the legal health record. It is not the complete legal health record.[facility]
--- OUTSIDE RECORDS SUMMARY | 2025-02-26 06:40 | XMS_ITS | Encounter Summary ---
Author Organization [facility] Address 399 [facility] [address] [place] [address] Phone Care Team Providers Care Detasseler Name Role Phone Marcie Mitchell MD Primary Care Provider + [phone] Aaron Estrada NP Primary Care Provider [phone]- [phone] Encounter Details Date Type Department Care Team (Late Contact Info) Description 07/30/2022 Procedure Pass [address] [place] [address] Social History Tobacco Use Types Packs/Day Years [...] Description 03/12/2025 10:30 AM EST Initial consult [facility] Surgical Oncology 45 [facility] [place] [address] Isaias Tineo MD [address] [place] [address] [email or web address] documented as of this encounter Visit Diagnoses Not on filedocumented in this encounter Care Teams Detasseler Relationship Specialty Start Date End Date Marcie Mitchell MD [email or web address] PCP - General Internal Medicine 11/21/17 02/01/25 Aaron Estrada NP [address] [place] [phone] PCP - General Nurse Practitioner 02/02/25 documented as of this encounter Additional Source Comments The information contained in this document represents components of the legal health record. It is not the complete legal health record.[facility]
--- OUTSIDE RECORDS SUMMARY | 2025-02-26 06:40 | XMS_ITS | Encounter Summary ---
Author Organization [facility] Address [address] [place] [address] Phone Care Team Providers Care Program Mgr Name Role Phone Marcie Mitchell MD Primary Care Provider + [phone] Aaron Estrada NP Primary Care Provider [phone]- [phone] Encounter Details Date Type Department Care Team (Late st Contact Info) Description 12/11/2017 Procedure Pass OR Admitting Dept - Virtual Department [address] [place] [address] Social History Tobacco Use Types Packs/Day Years [...] Description 03/12/2025 10:30 AM EST Initial consult [facility] Surgical Oncology 45 [facility] [place] [address] Isaias Tineo MD [address] [place] [address] [email or web address] documented as of this encounter Visit Diagnoses Not on filedocumented in this encounter Care Teams Program Mgr Relationship Specialty Start Date End Date Marcie Mitchell MD [email or web address] PCP - General Internal Medicine 11/21/17 02/01/25 Aaron Estrada NP [address] [place] [phone] PCP - General Nurse Practitioner 02/02/25 documented as of this encounter Additional Source Comments The information contained in this document represents components of the legal health record. It is not the complete legal health record.[facility]
--- OUTSIDE RECORDS SUMMARY | 2025-02-26 06:40 | XMS_ITS | Encounter Summary ---
Author Organization [facility] Address 399 [facility] [address] [place] [address] Phone Care Team Providers Care Catering Convention Services Manager Name Role Phone Aaron Estrada Eric TUCK POINTER HELPER Primary Care Provider +- [phone] Encounter Details Date Type Department Care Team (Late Contact Info) Description 02/12/2025 Telephone [facility] Surgical Oncology [address] [place] [address] Adriana [email or web address] Social History Tobacco Use Types Packs/Day Years [...] Description 03/12/2025 10:30 AM EST Initial consult [facility] Surgical Oncology [address] [place] [address] [place] [address] Isaias Tineo MD [address] [place] [address] [email or web address] documented as of this encounter Visit Diagnoses Not on filedocumented in this encounter Care Teams Catering Convention Services Manager Relationship Specialty Start Date End Date Aaron Estrada NP [address] [place] [phone] PCP - General Nurse Practitioner 02/02/25 documented as of this encounter Additional Source Comments The information contained in this document represents components of the legal health record. It is not the complete legal health record.[facility]
--- OUTSIDE RECORDS SUMMARY | 2025-02-26 06:40 | XMS_ITS | Encounter Summary ---
Author Organization [facility] Address [address] [address] Phone Care Team Providers Care Change Over Name Role Phone Marcie Mitchell MD Primary Care Provider [phone] Aaron Estrada NP Primary Care Provider [phone]- [phone] Encounter Details Date Type Department Care Team (Late st Contact Info) Description 11/21/2017 Prep for Surgery [facility] Orthopedics & Sports Medicine [address] [place] [address] Bob Ac MD [address] [place] [address] Mass of finger of right hand (Primary [...] Description 03/12/2025 10:30 AM EST Initial consult [facility] Surgical Oncology 45 [facility] [place] [address] Isaias Tineo MD [address] [place] [phone] [email or web address] documented as of this encounter Visit Diagnoses Diagnosis Mass of finger of right hand- Primary Localized superficial swelling, mass, or lump documented in this encounter Care Teams Change Over Relationship Specialty Start Date End Date Marcie Mitchell MD PCP - General Internal Medicine 11/21/17 02/01/25 Aaron Estrada NP [address] [place] [phone] PCP - General Nurse Practitioner 02/02/25 documented as of this encounter Additional Source Comments The information contained in this document represents components of the legal health record. It is not the complete legal health record.[facility]
--- NOTE | 2025-03-10 13:18 | HO.ANESPROP2 ---
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) Pancreatic lesion (Acute) Nephrolithiasis (Acute) Bladder outlet obstruction (Acute) Prostate CA (Acute) Past Medical History Medical History (Updated 03/15/25 @ 08:21 by MARLYN Ramirez) Hypercholesterolemia Right elbow tendonitis Constipation Elevated cholesterol HTN (hypertension) Prostate cancer Surgical History Surgical History (Updated 03/15/25 @ 08:45 by Carolina Loco RN) Hx of wisdom tooth extraction Hx of appendectomy Hx of colonoscopy History of surgery Social History Social History Patient Tobacco Use Status: Never used Tobacco Have you been hit, kicked, punched, or otherwise hurt by someone within the past year? If so, by whom?: No Are you DNR?: No Advance Directives: No Advance Directives Information Provided: Yes Meds Allergies Allergy/AdvReac Type Severity Reaction Status Date / Time No Known Allergies Allergy Verified 08/09/23 09:28 Home Medications ?Medication ?Instructions ?Recorded ?Confirmed ?Last Taken ?Type aspirin 81 mg tablet 81 mg PO DAILY 01/22/25 03/11/25 03/03/25 History Documented by User: Piyush Quinonez MD 03/15/25 09:49 PMFSH Past Medical History Medical History (Updated 03/15/25 @ 08:21 by MARLYN Ramirez) Hypercholesterolemia Right elbow tendonitis Constipation Elevated cholesterol HTN (hypertension) Prostate cancer Family History Family history of problems with anesthesia: No Surgical History Surgical History (Updated 12/22/25 @ 08:45 by Carolina Loco RN) Hx of wisdom tooth extraction Hx of appendectomy Hx of colonoscopy History of surgery History of Problems with Anesthesia: No Social History Social History Patient Tobacco Use Status: Never used Tobacco Have you been hit, kicked, punched, or otherwise hurt by someone within the past year? If so, by whom?: No Are you DNR?: No Advance Directives: No Advance Directives Information Provided: Yes Meds Allergies Allergy/AdvReac Type Severity Reaction Status Date / Time No Known Allergies Allergy Verified 08/09/23 09:28 Home Medications ?Medication ?Instructions ?Recorded ?Confirmed ?Last Taken ?Type aspirin 81 mg tablet 81 mg PO DAILY 01/22/25 03/11/25 03/03/25 History Exam Airway Mallampati Class: II TM Dist: >3cm Neck ROM: Full Loose/Missing/Broken Teeth: No Heart: RRR Lungs: CTA Assessment and Plan Assessment Anesthesia Assessment: Anesthesia Plan Discussed Final Anesthetic Review Family History of Problems with Anesthesia: No History of Problems with Anesthesia: No NPO: Yes ASA Class: II Final Preanesthetic Review: No Changes in Pt Med Stat, Meds/Allgs Chart Reviewed, Consent Obtained/Reviewed and Anes Risks/Benef Reviewed Patient Risk: Low Procedure Risk: Low Anesthetic Plan Anesthetic Plan: GA Disposition: Standard PACU
--- NOTE | ~2025-03-15 | FL_ITS ---
EXAMINATION: FL GUIDANCE ONLY HISTORY: STONE RIGHT COMPARISON: Correlation is made with a CT of the abdomen and pelvis without contrast dated 01/15/2025. TECHNIQUE: Fluoroscopy time: 36.5 seconds. Cumulative Dose: 7.6913 mGy. DAP: 3.2349 Gycm2 Images: 3. FINDINGS: Fluoroscopic spot films of the right abdomen demonstrate opacification of the proximal ureter and intrarenal collecting system. The ureter is normal in caliber. There is no hydronephrosis. There is limited visualization of the calyces. The final images demonstrate placement of a nephroureteral stent. FL/FL guidance in OR IMPRESSION: Fluoroscopy during procedure. Please see procedure report for additional information. Electronically signed by: Colt Garcia MD 03/16/2025 07:50 AM TYESHA MISHRA
[2025-03-15 08:08] VITALS: BMI 27.2
[2025-03-15 08:37] VITALS: BP 151/90; PULSE 66; RESP 18; TEMP 36.4; O2SAT 97; BMI 27.9
[2025-03-15] MEDS: Lactated Ringers 1,000 ML 100 ML IVCONT (09:00)
--- NOTE | 2025-03-15 10:41 | PC.NURSE ---
voided in the bathroom
--- NOTE | 2025-03-15 12:13 | PC.NURSE ---
voided in the bathroom
--- NOTE | 2025-03-15 12:32 | MHC.SHP ---
Pre-Procedural Eval Section A - 24 Hr Update-Section A only Date of Service: 03/15/25 The patient is an INPATIENT: No Changes since office visit: No Cold of Flu in the past 2 weeks, No New Medical Problems, No Changes in Medication and No Patient answered all questions The patient has been examined within 24 hours of the surgical procedure. The History & Physical has been completed within 30 days and I have reviewed it.: Yes Section B - Complete if H&P > 30 days Chief Complaint: Calculus of kidney Details of Present Illness: right retrograde, uerteroscopy Allergies: Allergies Allergy/AdvReac Type Severity Reaction Status Date / Time No Known Allergies Allergy Verified 08/09/23 09:28 Plan I have reviewed the history and physical and performed a pertinent physical examination on my patient. No changes have occurred unless specified. Time Spent With Patient Time: Total time managing care of this patient today ____ minutes.
[2025-03-15 14:10] VITALS: BP 142/82; PULSE 55; RESP 15; TEMP 36.4; O2SAT 96
--- NOTE | 2025-03-15 14:14 | P.OP_ITS ---
Operative Note Operative Note Date of Service: 03/15/25 Narrative: PreOperative Diagnosis: 2.4 cm staghorn calculus right upper pole Post Operative Diagnosis: Above Procedure: - cystoscopy, right retrograde - right dilatation of ureteric orifice under fluoroscopy - right ureteroscopy, laser lithotripsy, stone basketing - using steerable vacuum sheath modifier 22 - 100% longer than typical 90 minutes versus 45 - right stent placement Surgeon: Dr Jc Rios Anesthesia: General Indications for procedure: Right upper pole 24 mm x 19 mm staghorn calculus. Persistent right-sided discomfort with hematuria. Based on consideration of options recommend either vacuum sheath assisted ureteroscopy versus PCNL. Due to the same-day nature of vacuum sheath assisted ureteroscopy this was a 1st choice. Risks and benefits have been discussed. Procedure: After informed consent was verified patient was brought to the operating placed in supine position. Anesthesia was administered per protocol. Patient was placed in modified dorsal lithotomy position and prepped and draped in a sterile fashion. Safety pause time-out and side of surgery confirmed. Antibiotics confirmed. A 22 Icelandic cystoscope was inserted per urethra. The urethra and bladder were normal in their entirety. Both ureteric orifices were in normal position. The right ureteric orifice was cannulated and a retrograde examination was performed. Filling defects seen in right upper pole consistent with staghorn calculus.. A Sensor guidewire was placed up to the level of the renal pelvis under fluoroscopy. The rigid cystoscope was removed and the inner cannula of ureteric access sheath was used under fluoroscopy to dilate the ureteric orifice. The steerable, vacuum ureteric access sheath was placed and the inner cannula with access wire removed. The disposable digital flexible ureteral scope was placed. The stone was encountered in the described positioned in the upper pole. Using a 365 micron holmium fiber. The quanta laser with combination settings for popcorn and dusting the stone was addressed. Over 60 minute timeframe of the stone was broken into small pieces and suctioned back into the access sheath for continued breaking down. Entire right upper pole calyx was examined. The primary stone was treated in the primary upper pole calyx along with to side branches. Total of 28 kJ was used with settings up to 2 kJ and 10 hertz. Total power put proximally 20 w. At the completion of the stone procedure a Sensor wire was placed back into the renal pelvis. The rigid cystoscope was backloaded over the wire and advanced into the bladder. A 6 Icelandic by 28 cm double-J stent was placed into the renal pelvis and bl adder under a combination of fluoroscopy and direct visualization. Proximal positioning of the stent was confirmed using fluoroscopy. The bladder was emptied. The patient tolerated the procedure well and was extubated in the operating room, and transferred in stable condition to the recovery area. Pathology: Fragmentation stones Drains: Stent as above [facility] code C9761 describes cystourethroscopy, with ureteroscopy and/or pyeloscopy, with lithotripsy, and ureteral catheterization for steerable vacuum aspiration of the kidney, collecting system, ureter, bladder, and urethra if applicable (must use a steerable ureteral catheter).
[2025-03-15 14:25] VITALS: BP 125/67; PULSE 55; RESP 12; TEMP 36.1; O2SAT 97
--- NOTE | 2025-03-15 15:16 | PC.NURSE ---
PATIENT BROUGHT TO DISCHARGE AREA AND ASSISTED TO BATHROOM BY MITTEN STITCHER. PATIENT REPORTING SOME LIGHT HEADEDNESS AND NAUSEA. ORDER OBTAINED FROM DR. MARIA FOR SL ZOFRAN. PATIENT ASSISTED TO RECLINER AND GIVEN A COOL CLOTH. PATIENT GIVEN ZOFRAN SL BY PACU, RN.
--- NOTE | 2025-03-15 15:55 | PC.NURSE ---
PATIENT FEELING BETTER AFTER HAVING RECEIVED APPROX NS 600 ML IV. COLOR BETTER AND NAUSEA GONE. PATIENT STATES FEELING OKAY TO GO HOME. PATIENT GIVEN DC INSTRUCTIONS. PACKER AND CARRY OUT REMOVED IV AND PATIENT DISCHARGED.
== END 2025-03-15 15:58 | disposition home or self-care (01) ==
PROVIDERS: PCP Nurse Practitioner Family; Visit Provider Urology
PROC: (CPT 52356; principal; 2025-03-15 10:10)
DX: N20.0 Calculus of kidney (principal); K86.9 Disease of pancreas, unspecified; D13.6 Benign neoplasm of pancreas; C61 Malignant neoplasm of prostate; N41.9 Inflammatory disease of prostate, unspecified; Z79.82 Long term (current) use of aspirin; Z98.890 Other specified postprocedural states
CPT/HCPCS: 52356; 82365; 88300; C1758; C1769; C2617; J0131; J1100; J1956; J2003; J2250; J2405; J2704; J3010; Q9967

== ENCOUNTER → 2025-03-15 08:26 | Outpatient (BNV) | payer MEDICARE, BC, SELFPAY | PROVIDERS: PCP Nurse Practitioner Family; Visit Provider Urology | DX: N20.0 Calculus of kidney (principal) | CPT/HCPCS: 52356; 74420 ==